=== PATIENT | male | born 2000 | race Two or more races ===

== ENCOUNTER 2025-02-19 14:00 | Outpatient (RCR) | payer BC, SELFPAY | END 2025-04-08 11:25 | disposition home or self-care (01) | PROVIDERS: PCP Student in an Organized Health Care Education/Training Program; Visit Provider Student in an Organized Health Care Education/Training Program | DX: S46.011D Strain of muscle(s) and tendon(s) of the rotator cuff of right shoulder, subsequent encounter (principal); Z51.89 Encounter for other specified aftercare | CPT/HCPCS: 97110; 97112; 97161 ==